=== PATIENT | male | born 2005 | race Hispanic/Latino ===

== ENCOUNTER 2023-08-15 16:17 | Emergency (ER) | payer BC ==
[~2023-08-15] VITALS: Ht 167.6 cm; Wt 89.4 kg
[2023-08-15 18:41] LABS: BASOPHILS # (AUTO) 0.03 K/uL (0.00-0.20); BASOPHILS % (AUTO) 0.5 % (0.0-5.0); EOSINOPHILS # (AUTO) 0.02 K/uL (0.00-0.70); EOSINOPHILS % (AUTO) 0.3 % (0.0-8.0); HEMATOCRIT 41.9 % (42-54); IMMATURE GRANULOCYTE ABSOLUTE 0.03 K/uL (0-1); LYMPHOCYTES # (AUTO) 0.3 K/uL (1.0-4.8); LYMPHOCYTES % (AUTO) 5.5 % (21.0-51.0); MEAN CORPUSCULAR HEMOGLOBIN 28.7 pg (27.0-33.0); MEAN CORPUSCULAR HGB CONC 33.2 g/dL (32.0-36.0); MEAN CORPUSCULAR VOLUME 86.4 fL (80-100); MONOCYTES # (AUTO) 0.8 K/uL (0.1-1.0); MONOCYTES % (AUTO) 13.1 % (3.0-13.0); NEUTROPHILS % (AUTO) 80.1 % (40.0-77.0); PLATELET COUNT (AUTO) 204 K/uL (130-400); RED BLOOD CELL COUNT(AUTO) 4.85 MIL/uL (4.50-6.20); RED CELL DISTRIBUTION WIDTH 13.4 % (11.0-15.5); WHITE BLOOD COUNT (AUTO) 6.2 K/uL (4.8-10.8)
[2023-08-15 18:52] LABS: POTASSIUM 3.8 mmol/L (3.5-5.1)
[2023-08-15 18:57] LABS: ALBUMIN 4.3 g/dL (3.5-5.0); BILIRUBIN,TOTAL 0.4 mg/dL (0.2-1.0); TOTAL PROTEIN, SERUM 7.9 g/dL (6.0-8.3)
[2023-08-15 19:13] LABS: APPEARANCE,URINE CLEAR (CLEAR); BILIRUBIN,URINE NEGATIVE (NEGATIVE); COLOR,URINE LIGHT-YELLOW (YELLOW); GLUCOSE, URINE (UA) NEGATIVE (NEGATIVE); KETONES,URINE NEGATIVE (NEGATIVE); LEUKOCYTE ESTERASE ,URINE NEGATIVE Leu/uL (NEGATIVE); NITRATE,URINE NEGATIVE (NEGATIVE); OCCULT BLOOD,URINE NEGATIVE (NEGATIVE); PROTEIN,URINE NEGATIVE (NEGATIVE); UROBILINOGEN,URINE 0.2 mg/dL (0.2-1.0)
[2023-08-15 19:14] VITALS: TEMP 100.6
[2023-08-15] MEDS: ONDANSETRON ODT 4MG TAB SL ONE (19:14)
[2023-08-15] MEDS: ACETAMINOPHEN 500 MG TABLET PO ONE (19:14)
[2023-08-15 19:22] LABS: ADD UA MICROSCOPIC YES
[2023-08-15 19:24] LABS: INFLUENZA TYPE B NEGATIVE FOR TYPE B (NEG); SARS-CoV-2, RNA, NAAT NEGATIVE SARS CoV-2 (NEGATIVE)
[2023-08-15 19:26] LABS: INFLUENZA TYPE A POSITIVE FOR TYPE A (NEG)
[2023-08-15] MEDS ORDERED: OSEL75 PO (19:39)
[2023-08-15] MEDS ORDERED: IBUP-2077 PO (19:39)
[2023-08-15] MEDS ORDERED: ONDA4TAB10 PO (19:39)
[2023-08-15 20:02] VITALS: BP 134/86; PULSE 98; RESP 20; O2SAT 99
[2023-08-15 20:05] LABS: SQUAMOUS EPITHELIAL CELL,UR RARE /HPF (0-2); WBC,URINE 0-1 /HPF (0-1)
== END 2023-08-15 21:02 | disposition home or self-care (01) ==
LOC: EDH 16:17
DX: J10.1 Influenza due to other identified influenza virus with other respiratory manifestations (principal); Z20.822 Contact with and (suspected) exposure to COVID-19
CPT/HCPCS: 36415; 71045; 80053; 81001; 85025; 87635; 87804; 87880

== ENCOUNTER 2023-10-23 17:32 | Emergency (ER) | payer BC ==
[~2023-10-23] VITALS: Ht 167.6 cm; Wt 84.4 kg
[~2023-10-23 17:32] MED LIST: IBUP-2077 PO; ONDA-243 PO; OSEL75 PO
[2023-10-23 18:05] LABS: BASOPHILS # (AUTO) 0.06 K/uL (0.00-0.20); BASOPHILS % (AUTO) 0.6 % (0.0-5.0); EOSINOPHILS # (AUTO) 0.08 K/uL (0.00-0.70); EOSINOPHILS % (AUTO) 0.8 % (0.0-8.0); HEMATOCRIT 42.2 % (42-54); IMMATURE GRANULOCYTE ABSOLUTE 0.03 K/uL (0-1); LYMPHOCYTES # (AUTO) 2.1 K/uL (1.0-4.8); LYMPHOCYTES % (AUTO) 21.1 % (21.0-51.0); MEAN CORPUSCULAR HEMOGLOBIN 28.8 pg (27.0-33.0); MEAN CORPUSCULAR HGB CONC 33.4 g/dL (32.0-36.0); MEAN CORPUSCULAR VOLUME 86.1 fL (80-100); MONOCYTES # (AUTO) 0.9 K/uL (0.1-1.0); NEUTROPHILS # (AUTO) 6.7 K/uL (1.8-7.7); NEUTROPHILS % (AUTO) 68.2 % (40.0-77.0); PLATELET COUNT (AUTO) 321 K/uL (130-400); RED CELL DISTRIBUTION WIDTH 13.2 % (11.0-15.5); WHITE BLOOD COUNT (AUTO) 9.9 K/uL (4.8-10.8)
[2023-10-23] MEDS: CEFTRIAXONE 1G VIAL IVPB ONE (18:07)
[2023-10-23 18:13] LABS: POTASSIUM 4.2 mmol/L (3.5-5.1)
[2023-10-23] MEDS ORDERED: SULF1TAB42 PO (20:33)
[2023-10-23] MEDS ORDERED: AMOX1TAB16 PO (20:33)
[2023-10-23] MEDS: NEOMY SULF/BACITRA/POLYMYXIN B 1 EACH PACKET TP ONE (20:34)
[2023-10-23] MEDS: LIDOCAINE HCL 1% 20 ML VIAL INJ SCH (20:34)
[2023-10-23 21:10] VITALS: BP 124/74; PULSE 70; RESP 18; O2SAT 98
== END 2023-10-23 21:11 | disposition home or self-care (01) ==
LOC: EDH 17:32
DX: L02.214 Cutaneous abscess of groin (principal); L03.314 Cellulitis of groin
CPT/HCPCS: 99284; 96365; 10060; 80048; 85025; 87070; 87076; 36415; 76882; J0696